=== PATIENT | female | born 2000 | race Two or more races ===

== ENCOUNTER 2022-11-02 02:13 | Emergency (ER) | payer SELFPAY ==
--- NOTE | 2022-11-02 02:22 | ECG_ITS ---
Test Reason : OD Blood Pressure : / mmHG Vent. Rate : 063 BPM Atrial Rate : 063 BPM P-R Int : 192 ms QRS Dur : 100 ms QT Int : 418 ms P-R-T Axes : 036 074 044 degrees QTc Int : 427 ms Normal sinus rhythm Normal ECG No previous ECGs available Referred By: Ron De Jesus Electronically Signed By:Alireza Burnett
--- NOTE | 2022-11-02 02:33 | ED_ITS ---
HPI - Overdose General Chief Complaint: Overdose Stated Complaint: SECTION 12,OD Time Seen by Provider: 11/02/22 02:21 Source: patient and EMS Mode of arrival: EMS Limitations: language barrier (No foreign language interpreter available despite efforts to obtain [place] foreign language interpreter) History of Present Illness HPI Narrative: Patient only speak [place] language we were able to communicate with mix of Qatari language and the sign language history from EMS, patient admitted to suicidal attempt by overdosing on [place]az[place]am [place] (2.5 milligram/mL liquid missing about 15 mL from the bottle patient took it about 30 minutes before arrival) patient declined taking any other coingestion, patient was on the phone with her who is calling from [place] then patient overdosed on the medicine at attempting to hurt herself, called 911 and patient was Section 12 by the police and brought to the hospital for further evaluation. Related Data Allergies Allergy/AdvReac Type Severity Reaction Status Date / Time No Known Allergies Allergy Verified 11/02/22 02:22 Review of Systems Review of Systems: Yes Other (Unable to obtain due to language barrier) COUNTS INCLUDE 234 BEDS AT THE [facility] Social History Social History Alcohol intake: unknown Smoked in Last 30 Days: No Use of substances other than those prescribed or required for medical reasons: Unknown Patient : No Physical Exam Vital Signs: Vital Signs: Last Vital Signs Temp 97.7 F 11/02/22 05:19 Pulse 57 11/02/22 06:01 Resp 16 11/02/22 06:01 BP 93/45 L 11/02/22 06:01 Pulse Ox 96 11/02/22 06:01 O2 Del Method 11/02/22 06:01 BMI result Body Mass Index 23.2 Vital signs have been reviewed as appeared to be correct. Blood pressure normal. Heart rate normal. Respiration rate normal. Temperature normal. Oxygen saturation normal. Appearance: Alert. Oriented X3. No acute distress. Head: Normal external exam. Normocephalic. Atraumatic. No Hernandez signs noted. No raccoon eyes noted Eyes: PERRLA. EOMI. Conjunctiva and sclera normal. Eyelids normal. ENT: TM's Normal. Pharynx normal. Uvula midline. Moist mucous membranes. No trismus noted. No drooling noted. No muffled voice noted. Neck: Normal inspection. Neck supple. FROM. No adenopathy. Thyroid Normal. No meningeal signs. No neck mass noted. CVS: Normal heart rate and rhythm. Heart sound normal. No murmurs noted. Pulses normal throughout. Respiratory: No respiratory distress. Painless inspiration. Breath sounds normal. No wheezes/rales/rhonchi noted. Chest nontender. No accessory muscle usage noted or decreased air movement noted. Abdomen: Soft and nontender. Bowel sounds normal in all 4 quadrants. No distention noted. No organomegaly noted. No visible injury noted. Back: No CVA tenderness. Full range of motion noted. Skin: Skin warm and dry. Normal skin color. Normal skin turgor. No rashes/lesions/lacerations noted. Extremities: No lower extremity edema. Extremities exhibit normal range of motion. Extremities nontender. Neuro: Oriented X 3. Cranial nerve exam: II-XII are grossly intact No motor deficit. No sensory deficit. Reflexes normal. Patient Orientation: Person, Place, Time and Situation, okay hygiene and grooming. Fair eye contact, attentive, no tics or tremors. Level of Consciousness: Awake, Appropriate and Alert Patient Behavior: Appropriate, Guarded, Cooperative and Anxious Mood Description: Constricted, Blunted and Apprehensive Affect Description: Constricted, Blunted and Apprehensive Patient Cognition Impaired: No Ability to Follow Directions: Excellent Speech Pattern: Clear, Appropriate and Spontaneous Speech, nonpressured, spontaneous with regular rate and rhythm, normal volume and prosody. No dysarthria. Memory Description: Intact, Immediate Intact and Short Term Intact Hallucinations: None Delusions: Not Present Thought Process: Intact Thought Content: positive for Intact, positive for Logical. Depressive Symptoms: Not present. Judgement and Insight: Limited but adequate. Course Course Course Narrative: 22-year-old female came in after overdosed on clonazepam, patient has unremarkable labs in particular no abnormal LFTs patient declined overdosing on any other coingestion other than the clonazepam with negative blood levels for ETOH/ASA/APAP. Patient is medically cleared for care team evaluation and will continue with one-to-one observation. Reevaluation(s) Reevaluation #1: Will start physician observation waiting for care team evaluation and disposition of the patient. Patient hemodynamically stable with stable vital signs. Time: 05:51 Medications Administered Generic Name Dose Route Start Last Admin Trade Name Daylin PRN Reason Stop Dose Admin Sodium Chloride 1,000 mls @ 999 mls/hr 11/02/22 05:44 11/02/22 05:55 Ns IV 11/02/22 06:44 999 mls/hr .Q1H1M ONE Administration Discontinued Medications Generic Name Dose Route Start Last Admin Trade Name Daylin PRN Reason Stop Dose Admin Charcoal 25 gm 11/02/22 02:32 11/02/22 02:43 Activated Charcoal 25 Gm/120 Ml Oral.Susp PO 11/02/22 02:33 25 gm ONCE ONE Administration Sodium Chloride 1,000 mls @ 999 mls/hr 11/02/22 02:22 11/02/22 05:47 Ns IV 11/02/22 03:22 Infused .Q1H1M ONE Infusion Medical Decision Making Differential Diagnosis Differential Diagnoses: The differential diagnosis associated with the presentation includes (Depression/overdose/Tylenol toxicity/alcohol intoxicati on/aspirin toxicity/benzo toxicity.) Consult Healthcare Provider Management of the patient was discussed with: [employer] Chief (Poison Control: Recommended supportive measures.) Lab Data MDM Lab Attestation statement: I reviewed the patient's lab results. 11/02/22 03:01 11/02/22 03:01 Labs: Lab Results 11/02/22 11/02/22 11/02/22 Range/Units 02:45 03:01 03:01 WBC 8.4 (4.8-10.8) X10*3/uL RBC 4.38 (4.20-5.50) X10*6/uL Hgb 13.4 (12.0-16.0) g/dl Hct 40.1 (37.0-47.0) % MCV 91.6 (80.0-98.0) fL MCH 30.6 (27.0-33.0) pg MCHC 33.4 (31.0-35.0) g/dl RDW 12.2 (11.0-16.0) % Plt Count 228 (160-400) X10*3/uL MPV 10.5 (9.4-12.3) fL Immature Gran % (Auto) 0.1 (0.0-0.4) % Neut % (Auto) 50.8 (45-73) % Lymph % (Auto) 38.6 (20-40) % [place] % (Auto) 6.7 (2-11) % Eos % (Auto) 3.3 (0-4) % Baso % (Auto) 0.5 (0-2) % Lymph # (Auto) 3.3 (1.2-4.9) X10*3/uL [place] # (Auto) 0.6 (0.1-1.2) X10*3/uL Eos # (Auto) 0.3 (0.0-0.4) X10*3/uL Baso # (Auto) 0.0 (0.0-0.2) X10*3/uL Abs Immat Gran (auto) 0.01 (0.00-0.03) X10*3/uL Absolute Neuts (auto) 4.3 (2.0-8.3) x10*3/uL Absolute Nucleated RBC 0.000 (0.0-0.012) X10*3/uL Nucleated RBC % (auto) 0.0 (0.0-0.2) /100WBC Sodium 139 (135-145) mmol/L Potassium 4.7 (3.3-5.1) mmol/L Chloride 105 (96-108) mmol/L Carbon Dioxide 27 (22-29) mmol/L Anion Gap 12 (12-20) BUN 18 H (9-16) mg/dL Creatinine 0.80 (0.5-1.4) mg/dL Estim Creat Clear Calc 97.5 Estimated GFR > 60 Random Glucose 86 (60-115) mg/dL Calcium 9.7 (8.4-10.2) mg/dL Total Bilirubin 0.4 (0.0-1.0) mg/dL Direct Bilirubin < 0.2 (0.0-0.5) mg/dL AST 18 (5-31) U/L ALT 19 (0-31) U/L Alkaline Phosphatase 65 (39-117) U/L Troponin I High Sens (<3.5-17.0) ng/L B-Natriuretic Peptide (<100) pg/mL Total Protein 7.1 (6.5-8.0) g/dL Albumin 4.3 (3.5-5.0) g/dL Lipase 35 (8-78) U/L Salicylates < 5.0 L (15-30) mg/dL Acetaminophen < 17 (<30) mcg/mL Ethyl Alcohol < 10 mg/dL COVID-19 ([facility]) Negative (Negative) COVID-19 Clin Com See Note 11/02/22 11/02/22 11/02/22 Range/Units 03:01 03:01 05:52 WBC (4.8-10.8) X10*3/uL RBC (4.20-5.50) X10*6/uL Hgb (12.0-16.0) g/dl Hct (37.0-47.0) % MCV (80.0-98.0) fL MCH (27.0-33.0) pg MCHC (31.0-35.0) g/dl RDW (11.0-16.0) % Plt Count (160-400) X10*3/uL MPV (9.4-12.3) fL Immature Gran % (Auto) (0.0-0.4) % Neut % (Auto) (45-73) % Lymph % (Auto) (20-40) % [place] % (Auto) (2-11) % Eos % (Auto) (0-4) % Baso % (Auto) (0-2) % Lymph # (Auto) (1.2-4.9) X10*3/uL [place] # (Auto) (0.1-1.2) X10*3/uL Eos # (Auto) (0.0-0.4) X10*3/uL Baso # (Auto) (0.0-0.2) X10*3/uL Abs Immat Gran (auto) (0.00-0.03) X10*3/uL Absolute Neuts (auto) (2.0-8.3) x10*3/uL Absolute Nucleated RBC (0.0-0.012) X10*3/uL Nucleated RBC % (auto) (0.0-0.2) /100WBC Sodium 138 (135-145) mmol/L Potassium 3.7 D (3.3-5.1) mmol/L Chloride 109 H (96-108) mmol/L Carbon Dioxide 23 (22-29) mmol/L Anion Gap 10 L (12-20) BUN 16 (9-16) mg/dL Creatinine 0.67 (0.5-1.4) mg/dL Estim Creat Clear Calc 116.5 Estimated GFR > 60 Random Glucose 86 (60-115) mg/dL Calcium 8.5 D (8.4-10.2) mg/dL Total Bilirubin 0.4 (0.0-1.0) mg/dL Direct Bilirubin 0.2 (0.0-0.5) mg/dL AST 16 (5-31) U/L ALT 15 (0-31) U/L Alkaline Phosphatase 53 (39-117) U/L Troponin I High Sens < 3.5 (<3.5-17.0) ng/L B-Natriuretic Peptide < 10 (<100) pg/mL Total Protein 6.1 L (6.5-8.0) g/dL Albumin 3.8 (3.5-5.0) g/dL Lipase (8-78) U/L Salicylates (15-30) mg/dL Acetaminophen (<30) mcg/mL Ethyl Alcohol mg/dL COVID-19 ([facility]) (Negative) COVID-19 Clin Com Independent Interpretation I performed an independent interpretation of an: EKG (Normal sinus rhythm at 63 beats per minutes, normal intervals, no ST-T changes.) Discharge Plan Discharge Clinical Impression: Drug overdose, Suicide attempt Patient Disposition: Still a Patient
[2022-11-02 02:34] VITALS: BP 105/59; BP 115/76; PULSE 65; PULSE 68; RESP 10; TEMP 36.4; O2SAT 100; BMI 23.2
[2022-11-02] MEDS: 0.9 % Sodium Chloride 1,000 ML 999 ML IV ×2 (02:43→05:55)
[2022-11-02 03:04] LABS: COVID-19 Test Negative (Negative); IDNOW Serial# BCCEAD1C
[2022-11-02 03:05] LABS: Basophils Percent Auto 0.5 % (0-2); Eosinophils Absolute Auto 0.3 X10*3/uL (0.0-0.4); Eosinophils Percent Auto 3.3 % (0-4); Hematocrit 40.1 % (37.0-47.0); Hemoglobin 13.4 g/dl (12.0-16.0); Imm Gran Abs Auto 0.01 X10*3/uL (0.00-0.03); Imm Gran Pct Auto 0.1 % (0.0-0.4); Lymphocytes Absolute Auto 3.3 X10*3/uL (1.2-4.9); Lymphocytes Percent Auto 38.6 % (20-40); MANUAL DIFF FLAG NO; Mean Corpuscular HGB Conc 33.4 g/dl (31.0-35.0); Mean Corpuscular Hemoglobin 30.6 pg (27.0-33.0); Mean Corpuscular Volume 91.6 fL (80.0-98.0); Mean Platelet Volume 10.5 fL (9.4-12.3); Monocytes Absolute Auto 0.6 X10*3/uL (0.1-1.2); Monocytes Percent Auto 6.7 % (2-11); Neutrophils Absolute Auto 4.3 x10*3/uL (2.0-8.3); Neutrophils Percent Auto 50.8 % (45-73); Platelet Count 228 X10*3/uL (160-400); Red Blood Count 4.38 X10*6/uL (4.20-5.50); Red Cell Distribution Width 12.2 % (11.0-16.0); White Blood Count 8.4 X10*3/uL (4.8-10.8)
[2022-11-02 03:24] LABS: Acetaminophen LAB < 17 mcg/mL (<30); Alanine Aminotransferase 19 U/L (0-31); Albumin Level 4.3 g/dL (3.5-5.0); Alkaline Phosphatase 65 U/L (39-117); Anion Gap 12 (12-20); Aspartate Amino Transferase 18 U/L (5-31); Bilirubin Direct < 0.2 mg/dL (0.0-0.5); Bilirubin Total 0.4 mg/dL (0.0-1.0); Blood Urea Nitrogen 18 mg/dL (9-16); Calcium 9.7 mg/dL (8.4-10.2); Carbon Dioxide 27 mmol/L (22-29); Chloride 105 mmol/L (96-108); Creatinine Clr Calc Pharmacy 97.5; Estimated Glomerular Filt Rate > 60; Ethanol < 10 mg/dL; Glucose Random 86 mg/dL (60-115); Lipase 35 U/L (8-78); Potassium 4.7 mmol/L (3.3-5.1); Salicylate < 5.0 mg/dL (15-30); Sodium 139 mmol/L (135-145); Total Protein 7.1 g/dL (6.5-8.0)
[2022-11-02 03:26] LABS: B Type Natriuretic Peptide < 10 pg/mL (<100)
[2022-11-02 03:27] LABS: Troponin-I High Sensitivity < 3.5 ng/L (<3.5-17.0)
[2022-11-02 05:19] VITALS: BP 93/43; PULSE 65; RESP 16; TEMP 36.5; O2SAT 96
--- NOTE | 2022-11-02 05:31 | PC.NURSE ---
The pt arrived to the ED via EMS from home for evaluation of suicidal ideations and potential intentional overdose - per EMS pt drank some of a bottle of liquid clonazepam 2.5mg/ml. Pt is unsure how much she drank. She is awake, alert, appropriate, calm and cooperative. SHe has been occasionally tearful. Pt is Hebrew speaking and we attempted to obtain boat crew deck hand services via the boat crew deck hand [employer] but they were unable to find any Hebrew speakers. Therefore, we used google translate so that the pt could communicate with nurses and MD Neal. The pt was given activated charcoal and she only took approximately one half of the ordered dose. No dificulty swallowing/taking PO fluids. Pt has been on a 1:1 since she arrived.
--- NOTE | 2022-11-02 05:55 | PC.NURSE ---
Poison Control suggests no interventions other than supportive care. Neal [place] aware.
[2022-11-02 06:01] VITALS: BP 93/45; PULSE 57; RESP 16; O2SAT 96
[2022-11-02 06:14] LABS: Alanine Aminotransferase 15 U/L (0-31); Albumin Level 3.8 g/dL (3.5-5.0); Alkaline Phosphatase 53 U/L (39-117); Anion Gap 10 (12-20); Aspartate Amino Transferase 16 U/L (5-31); Bilirubin Direct 0.2 mg/dL (0.0-0.5); Bilirubin Total 0.4 mg/dL (0.0-1.0); Blood Urea Nitrogen 16 mg/dL (9-16); Calcium 8.5 mg/dL (8.4-10.2); Carbon Dioxide 23 mmol/L (22-29); Chloride 109 mmol/L (96-108); Creatinine Clr Calc Pharmacy 116.5; Estimated Glomerular Filt Rate > 60; Glucose Random 86 mg/dL (60-115); Potassium 3.7 mmol/L (3.3-5.1); Sodium 138 mmol/L (135-145); Total Protein 6.1 g/dL (6.5-8.0)
[2022-11-02 07:08] VITALS: BP 91/44; PULSE 56; RESP 14
--- NOTE | 2022-11-02 07:23 | PC.NURSE ---
assumed care of patient, pt aox3, calm and cooperative, VSS, resting comfortably in bed, 1:[address], Sec [address].
[2022-11-02 11:29] VITALS: BP 100/63; PULSE 69; RESP 16; TEMP 36.9; O2SAT 97
== END 2022-11-02 14:55 | disposition home or self-care (01) ==
PROVIDERS: Emergency Medicine; Emergency Provider Student in an Organized Health Care Education/Training Program
DX: T42.4X2A Poisoning by benzodiazepines, intentional self-harm, initial encounter (principal); Y92.019 Unspecified place in single-family (private) house as the place of occurrence of the external cause; Z20.822 Contact with and (suspected) exposure to COVID-19
CPT/HCPCS: 36415; 80048; 80076; 80143; 80179; 82077; 83690; 83880; 84484; 85025; 87635; 93005; 96360; 96361; 99285; S9485